=== PATIENT | male | born 1980 | race Caucasian/White ===

== ENCOUNTER 2021-07-19 21:27 | Emergency (ER) | payer SELFPAY ==
[2021-07-19 21:33] VITALS: BP 157/94; PULSE 86; RESP 16; TEMP 36.7; O2SAT 99; BMI 33.5
[2021-07-19 22:49] LABS: Add Urine Microscopic? YES; Bilirubin Urine Neg (Negative); Blood Urine 3+ (Negative); Glucose Urine UA Norm (Normal); Ketones Urine 1+ (Negative); Leukocyte Esterase Urine Negative (Negative); Nitrate Urine Negative (Negative); Protein Urine 3+ (Negative); Urine Color Yellow (Yellow); Urobilinogen Urine 1 mg/dL (Negative); pH Urine 6 (5-7)
[2021-07-19 22:55] LABS: Add Urine Culture? Yes; Bacteria Urine TRACE /hpf; Calcium Oxalate Crystals Urine 15-25 /hpf; Mucus Urine 3+ /hpf; RBC Urine 40-50 /hpf (0-2); Squamous Epithelial Cell Urine 0-4 /hpf (0-5); WBC Urine 0-4 /hpf (0-5)
--- NOTE | 2021-07-19 23:01 | CTR_ITS ---
PROCEDURE INFORMATION: Exam: CT Abdomen And Pelvis Without Contrast Exam date and time: 07/19/2021 11:01 PM Age: 41 years old Clinical indication: Abdominal pain; Patient HX: Left flank pain with hematuria. ; Additional info: Left flank pain, hematuria TECHNIQUE: Imaging protocol: Computed tomography of the abdomen and pelvis without contrast. Radiation optimization: All CT scans at this facility use at least one of these dose optimization techniques: automated exposure control; mA and/or kV adjustment per patient size (includes targeted exams where dose is matched to clinical indication); or iterative reconstruction. COMPARISON: No relevant prior studies available. RADIATION DOSE METRICS: Total DLP (mGy-cm): 2034.56 FINDINGS: Limitations: The absence of intravenous contrast lessens the sensitivity of this study for solid organ abnormalities. Liver: There is no focal abnormality within the liver. Gallbladder and bile ducts: The gallbladder is normal. Pancreas: The pancreas is normal. Spleen: The spleen is normal. Adrenal glands: The adrenal glands are normal. Kidneys and ureters: There is a 2 x 5 mm sized stone at the right ureterovesical junction. 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 The right kidney is normal. There is no stone in the right ureter. Left kidney is enlarged and there is moderate left hydronephrosis and perinephric stranding consistent with acute obstruction. There is also left hydroureter and periureteric stranding. Stomach and bowel: Unremarkable. No obstruction. No mucosal thickening. Appendix: No evidence of appendicitis. Intraperitoneal space: Unremarkable. No free air. No significant fluid collection. Vasculature: There is no evidence of an abdominal aortic aneurysm. Lymph nodes: There is no evidence of lymphadenopathy. Urinary bladder: Unremarkable as visualized. Reproductive: Unremarkable as visualized. Bones/joints: Unremarkable. No acute fracture. Soft tissues: There is left inguinal hernia containing fat. CT/CT kidney stone [id number] IMPRESSION: Obstructing stone at the left ureterovesical junction causing left hydronephrosis and hydroureter. Radiation Dose CTDIVOL = (mGy): DLP = 4.56 (mGy-cm)
--- NOTE | 2021-07-19 23:32 | W.ED.BACK ---
HPI - Back Pain/Injury General: Chief Complaint: Back Pain/Injury Stated Complaint: lower back pain Time Seen by Provider: 07/19/21 23:32 History of Present Illness: HPI Narrative: 41-year-old male patient comes in today with complaints of left flank pain radiating into his groin. Patient states that he has had pain on and off all day. Patient appears well. Patient appears in mild pain at this time. Review of Systems General: Reports: 10 or more systems reviewed and unremarkable except in HPI and below : Reports: flank pain Physical Exam Const: COMMON NORMALS: no acute distress and patient oriented x3 GENERAL APPEARANCE: cooperative HENMT: COMMON NORMALS: normocephalic and Normal external nose present HEAD & SCALP: normal to inspection and normocephalic NOSE: Normal external nose present Eye: GENERAL EYE: appearance normal, both eyes and all related structures Neck/C-Spine: COMMON NORMALS: full ROM Chest: COMMONS NORMALS: normal inspection of the chest Resp: COMMON NORMALS: normal respiratory effort EFFORT & INSPECTION: Yes able to speak in complete sentences Cardio: COMMON NORMALS: regular rate and regular rhythm RATE: regular rate RHYTHM: regular rhythm GI: COMMON NORMALS: non-tender : BLADDER/KIDNEY EXAM: Yes CVA tenderness on the left Back/Pelvis: COMMON NORMALS: thoracic and lumbar spine normal to inspection GENERAL BACK: Yes CVA tenderness Extremity: COMMON NORMALS: normal to inspection Neuro: COMMON NORMALS: patient oriented x3 and moves all extremities Psych: COMMON NORMALS: mental status grossly normal and cooperative Skin: COMMON NORMALS: no rashes or lesions noted GENERAL SKIN EXAM: no rashes or lesions noted Course Vital Signs: Vital signs: Vital Signs Temperature 98.0 F 07/19/21 21:33 Pulse Rate 86 07/19/21 21:33 Respiratory Rate 16 07/19/21 21:33 Blood Pressure 157/94 07/19/21 21:33 Pulse Oximetry 99 07/19/21 21:33 MDM - Back Pain/Injury MDM Narrative: Medical decision making narrative: Patient comes in today with left flank pain. On exam he has some CVA tenderness on the left. Vital signs are normal. Differential diagnosis includes renal colic due to calculi, pyelonephritis, lumbar strain. CT noted a stone at the UVJ on the left side with left hydronephrosis. Patient appears well. Patient was given 1 hydrocodone for pain. Patient was recommended to follow-up with urology for further treatment. Patient reported understanding of care plan and need for follow-up or return to the ER for worsening symptoms or fever. Lab Data: Labs: Lab Results 07/19/21 Range/Units 22:06 Urine Color Yellow (Yellow) Urine Appearance Sl cloudy A (CLEAR) Urine pH 6 (5-7) Ur Specific Gravit y 1.020 (1.005-1.030) Urine Protein 3+ H (Negative) Urine Glucose (UA) Norm (Normal) Urine Ketones 1+ H (Negative) Urine Blood 3+ H (Negative) Urine Nitrate Negative (Negative) Urine Bilirubin Neg (Negative) Urine Urobilinogen 1 H (Negative) mg/dL Ur Leukocyte Kristine ase Negative (Negative) Urine RBC 40-50 H (0-2) /hpf Urine WBC 0-4 H (0-5) /hpf Ur Squamous Epith Cells 0-4 H (0-5) /hpf Calcium Oxalate Cr ystal 15-25 H /hpf Amorphous Sediment Not Reportable Urine Bacteria Trace (NONE) /hpf Urine Mucus 3+ /hpf Discharge Plan Discharge Patient Disposition: Home Clinical Impression: Renal colic Condition: Stable Prescriptions: New hydrocodone-acetaminophen 5-325 mg tablet 1 tab PO Q6H PRN (Reason: pain (scale score 7-10)) Qty: 10 RF: 0 tamsulosin 0.4 mg capsule 0.4 mg PO DAILY Qty: 10 RF: 0 ondansetron 4 mg tablet,disintegrating 4 mg PO Q8H PRN (Reason: nausea and vomiting) Qty: 10 RF: 0 Discharge Orders: Discharge ED (Routine); Ordered 07/19/21 Ordered By: Dave Ramírez Discharge Diet: Usual diet Discharge Activity: Increase activity as tolerated Patient Instructions: Renal Colic (ED), Opioid Safety Activity Restrictions/Additional Instructions: Medications as directed. Drink plenty of fluids. Follow-up with primary care for further instruction. Return to the ER for new concerns. Case management will contact you regarding a follow-up with urology if you still need the appointment. Coding Level of Care Code ED Band Splitter for Simon Singh
[2021-07-19] MEDS: ondansetron 4 MG Tablet PO (23:37)
[2021-07-19] MEDS: HYDROcodone-acetaminophen 7.5-325 mg Tablet 1 TAB PO (23:37)
[2021-07-20 00:09] VITALS: BP 157/94; PULSE 86; RESP 16; TEMP 36.7; O2SAT 99
--- NOTE | 2021-07-24 11:32 | DCPLANNER ---
Addendum entered by Barbara Rodas 07/31/21 11:04: research program manager called Dr. Tejeda office to confirm if an appointment had been scheduled for patient. research program manager spoke with Flor, was told that when clinic called patient, she stated that she passed stone, and did not want an appointment at this time. Original Note: research program manager had message to schedule a follow up appointment for patient with Dr. Tejeda. research program manager called the office of Dr. Tejeda, spoke with Flor, gave clinic patients information. research program manager was told that patients information would be printed and reviewed. Clinic will call patient with appointment information.
== END 2021-07-20 00:19 | disposition home or self-care (01) ==
PROVIDERS: Emergency Provider Nurse Practitioner Family
DX: N23 Unspecified renal colic (principal)
CPT/HCPCS: 74176; 81001; 87086; 99283; Q0162

== ENCOUNTER → 2021-09-13 11:27 | Outpatient (BNVA) | payer SELFPAY | PROVIDERS: Referring Provider Family Medicine; Visit Provider Podiatrist Foot & Ankle Surgery | DX: S82.831D Other fracture of upper and lower end of right fibula, subsequent encounter for closed fracture with routine healing (principal); X58.XXXD Exposure to other specified factors, subsequent encounter | CPT/HCPCS: 73610 ==

== ENCOUNTER → 2021-09-30 09:34 | Outpatient (BNVA) | payer SELFPAY | PROVIDERS: Visit Provider Podiatrist Foot & Ankle Surgery | DX: Z20.822 Contact with and (suspected) exposure to COVID-19 (principal) | CPT/HCPCS: 87635 ==

== ENCOUNTER 2021-10-04 05:43 | Day surgery (SDC) | payer SELFPAY ==
[2021-10-03 14:48] VITALS: BMI 31.6
[2021-10-04] VITALS (11 sets, daily range): BP systolic 113–149; BP diastolic 70–97; PULSE 71–77; RESP 10–18; TEMP 36.1–37; O2SAT 95–100
[2021-10-04] MEDS: sodium chloride 0.9% 1,000 ML 30 ML IV (06:24)
--- NOTE | 2021-10-04 06:44 | XR_ITS ---
WS: [id number] Exam: XR ankle RT 2V [id number] Date/Time of Exam: 10/04/2021 8:08 AM Reason For Exam: post op Comparison 09/13/2021. Cortical plate and multiple screws is been removed from the fibula. There are still 2 screws left in the fibula. Postoperative changes in the adjacent soft tissues with surgical skin clips laterally. Th e ankle mortise is intact. Lateral soft tissue swelling. XR/XR ankle RT 2V [id number] IMPRESSION: 1. A cortical plate and multiple screws is been removed from the fibula as note d above. Additional postoperative changes as described.
--- NOTE | 2021-10-04 06:55 | ANES.PREANE2 ---
Pre-Anesthetic Assessment Pre-Anesthetic Assessment: Height/Weight: Height 1.8 m Weight 102.965 kg Temp Pulse Resp BP Pulse Ox 98.6 F 75 18 113/94 100 10/04/21 06:15 10/04/21 06:15 10/04/21 06:15 10/04/21 06:15 10/04/21 06:15 Preop Diagnosis: Painful retained hardware right ankle Proposed Procedure: Operation Date: 10/04/21 07:00 Proposed Procedures p Hardware Removal Right Ankle 14767 T84.84XA M25.571(Right) - Alfonzo Acevedo DPM Was Beta Ramona taken within 24 hours: N/A Was Clonidine taken within 24 hours: N/A Last intake: Intake Last Liquid Date 10/03/21 Last Liquid Time 21:00 Last Solid Date 10/03/21 Last Solid Time 21:00 Social: Social History: No alcohol and No tobacco Exam: Pre-Anes Outpt Exam: alert and oriented x 3 Airway: Submandibular: WNL Cervical ROM: WNL MP: 1 Dentition: Chipped History/ROS: No significant history except as noted Pulmonary: Pulmonary: None reported CV/HEM: CV/HEM: HTN : : None reported Hepatic: Hepatic: None reported GI: GI: GERD (rare) Metabolic: Metabolic: None reported Musc/skel: Musc/skel: None reported Neuropsych: Neuropsych: None reported Anesthetic Plan: ASA status: 2 Anesthesia: Anesthesia Evaluation and General Risk of > 500 ml blood loss (7ml/kg in children): No Meds/Allergies Current Medications: Current Medications Generic Name Dose Route Start Last Admin Trade Name Freq PRN Reason Stop Dose Admin Sodium Chloride 1,000 mls @ 30 ml s/hr 10/04/21 06:00 10/04/21 06:24 Sodium Chloride 0.9% IV 10/05/21 05:59 30 mls/hr .Q24H [place] Administration PFSH Anesthesia PFSH: Social History Smoking and tobacco status: never smoked Data Anesthesia Cardiac Studies: No Data to Display
[2021-10-04] MEDS: lidocaine 1% INJ 20 mL INJECTION (07:05)
--- NOTE | 2021-10-04 07:59 | PM.OP ---
Operative Report Date of procedure: October 04, 2021 Pre-op Diagnosis: Painful retained hardware right ankle Post-op diagnosis: same Post-op Findings: None Procedure Done: Deep hardware removal right ankle Implants: 2-0 Vicryl, 3-0 Vicryl, skin taylor Specimens removed/disposition: 9 screws 1 plate right ankle Pathology: none sent Surgeon: Alfonzo Acevedo D.P.M. Clip Loading Machine Feeder: Chinmay Anesthesia: General Estimated blood loss: 5 Tourniquet time: 32 IV fluids: 0 Urine output: 0 Complications: 0 Findings: 0 Condition: stable Disposition: PACU Brief History: Patient had had backing out of hardware making it proud on his right lateral ankle difficult to wear shoes and work would like to have his hardware removed to prevent sores and reduce pain. Risks include pain, bleeding, numbness, infection, failure to reach our hardware, hardware failure and need for further surgical intervention. Procedure: Under mild sedation the patient was brought to the operating room and placed on the operating table in supine position. A timeout was performed. Anesthesia was then administered by the anesthesia service. Local anesthesia injected by myself consisting of 30 cc of one-to-one mixture 1% lidocaine and point 5C Marcaine plain and a lateral ankle block. Well-padded pneumatic tourniquet applied to high calf. Right lower extremity was then scrubbed, prepped and draped utilizing normal aseptic technique. Right foot was wrapped with an Esmarch bandage and a tourniquet inflated to 250 mmHg. Linear longitudinal incision made with a #15 blade to the left lateral ankle over the previous cicatrix with dissection carried down through skin and subcutaneous tissue utilizing accommodation of blunt and sharp technique. Encountered the standstill plate removed all 9 screws that were within the plate and the plate itself and passed from the operative field. Incision site was flushed with copious amounts of sterile saline solution. Determination was made that more surgical trauma would be encountered trying to remove the interfrag screws they were not well visualized and were not sitting proud or backed out. Further irrigation was performed and closure in a layered fashion consisting of 2-0 Vicryl, 3-0 Vicryl and skin taylor. Surgical dressings consisting of Adaptic, sterile 4 x 4, Kerlix and Arcadio wrap were then applied followed by postoperative shoe. Patient transferred to the PACU with vital signs stable vascular status intact. Following a period of postoperative monitoring he will be discharged home may be weightbearing as tolerated and elevate his right foot 45 minutes out of the hour. He was prescribed hydrocodone
[2021-10-04] MEDS: fentaNYL 50 mcg/mL INJ 2mL IVP (08:06)
--- NOTE | 2021-10-04 08:24 | SUR.PHASEI ---
pt sleeps if not disturbed dressing rt foot D/I DISTAL TOES PINK WARM, CAP REFILL LESS THAN 3 SECONDS.
--- NOTE | 2021-10-04 13:00 | W.PM.OPSUD ---
Surgery/Procedure H&P Update DATE OF PROCEDURE: October 04, 2021 DATE H&P PERFORMED: 09/13/21 PREOP DIAGNOSIS: Painful retained hardware right ankle PLANNED PROCEDURE: Operation Date: 10/04/21 07:00 Proposed Procedures p Hardware Removal Right Ankle 93696 T84.84XA M25.571(Right) - Alfonzo Acevedo DPM
--- NOTE | 2021-10-04 13:59 | ANE.PACU2 ---
Inpatient post-anesthesia follow up: Airway intact: Yes Vital signs: Temperature 98.4 F Pulse Rate 71 Respiratory Rate 18 Blood Pressure 113/88 Pulse Oximetry 96 Oxygen Delivery Me thod Room Air Oxygen Flow Rate Fraction of Inspir ed Oxygen Hydration adequate: Yes Nausea and vomiting: No Pain level: 2 Mental status: Baseline
--- NOTE | 2021-10-09 12:59 | P.HPUD_ITS ---
Surgery/Procedure H&P Update DATE OF PROCEDURE: October 04, 2021 DATE H&P PERFORMED: 09/13/21 H&P UPDATE INFORMATION: I have reviewed H&P completed within last 30 days, I have examined patient prior to procedure, No changes to prior documentation and H&P is in [facility] EMR on date indicated PREOP DIAGNOSIS: Painful retained hardware right ankle PLANNED PROCEDURE: Operation Date: 10/04/21 07:00 Proposed Procedures p Hardware Removal Right Ankle 71460 T84.84XA M25.571(Right) - Alfonzo Acevedo DPM
== END 2021-10-04 09:20 | disposition home or self-care (01) ==
PROVIDERS: Visit Provider Podiatrist Foot & Ankle Surgery
PROC: (CPT 20680; principal; 2021-10-04 07:00)
DX: M25.571 Pain in right ankle and joints of right foot (principal); G89.29 Other chronic pain
CPT/HCPCS: 20680; 73600; J0690; J1100; J2250; J2405; J2704; J3010; J3490; J7030

== ENCOUNTER → 2021-10-09 08:30 | Outpatient (BNVA) | payer SELFPAY | PROVIDERS: Visit Provider Podiatrist Foot & Ankle Surgery | DX: Z47.89 Encounter for other orthopedic aftercare (principal); S82.61XD Displaced fracture of lateral malleolus of right fibula, subsequent encounter for closed fracture with routine healing; X58.XXXD Exposure to other specified factors, subsequent encounter | CPT/HCPCS: 73610 ==